=== PATIENT | female | born 1945 | race Caucasian/White ===

== ENCOUNTER 2017-11-06 18:50 | Emergency (ER) | payer MEDICARE, MEDICAID ==
[~2017-11-06] VITALS: Ht 167.6 cm; Wt 81.8 kg
[~2017-11-06 18:50] MED LIST: AMLO-512 PO; LISI-662 PO; METO25TA6 PO; PERCT10 PO
[2017-11-06] MEDS ORDERED: HYDR2 PO (19:09)
[2017-11-06] MEDS: HYDROmorphone 2 MG/ML SYRINGE IVP ONE ×2 (20:02→20:05)
[2017-11-06] MEDS ORDERED: HYDROmorphone 2 MG/ML SYRINGE IVP ONE (20:15)
[2017-11-06] MEDS ORDERED: ONDANSETRON HCL 4 MG/2 ML VIAL IVP ONE (20:15)
[2017-11-06 20:59] VITALS: BP 141/73
== END 2017-11-06 21:13 | disposition home or self-care (01) ==
LOC: EMS 18:58
DX: M25.572 Pain in left ankle and joints of left foot (principal); Z76.0 Encounter for issue of repeat prescription; I10 Essential (primary) hypertension; Z79.899 Other long term (current) drug therapy; Z98.890 Other specified postprocedural states
CPT/HCPCS: 96374; 96375; 99284; J1170; J2405

== ENCOUNTER 2018-11-20 14:33 | Emergency (ER) | payer MEDICARE, MEDICAID ==
[~2018-11-20] VITALS: Ht 167.6 cm; Wt 86.4 kg
[~2018-11-20 14:33] MED LIST changes: -AMLO-512 PO; +AMLO10TA7 PO; +HYDR2 PO
[2018-11-20] MEDS ORDERED: DICL2100G TP (14:55)
[2018-11-20] MEDS ORDERED: PANT40TA25 PO (14:55)
[2018-11-20] MEDS ORDERED: ZOLP5 PO (14:55)
[2018-11-20] MEDS ORDERED: 0.9% SODIUM CHLORIDE 10 ML SYRINGE IVP PRN (15:45)
[2018-11-20 16:37] LABS: BASOPHILS % (AUTO) 0.3 % (0.0-2.0); EOSINOPHILS % (AUTO) 1.5 % (1.0-6.0); HEMATOCRIT 36.7 % (36-46); HEMOGLOBIN 12.2 g/dL (12.0-16.0); LYMPHOCYTES % (AUTO) 21.5 % (22.0-44.0); MEAN CORPUSCULAR HEMOGLOBIN 31.2 pg (26.0-34.0); MEAN CORPUSCULAR HGB CONC 33.3 G/dL (31.0-37.0); MEAN CORPUSCULAR VOLUME 94 fL (80-100); MONOCYTES # (AUTO) 0.4 K/uL (0.1-1.0); MONOCYTES % (AUTO) 9.8 % (2.0-9.0); NEUTROPHILS % (AUTO) 66.9 % (40.0-70.0); PLATELET COUNT (AUTO) 374 K/uL (150-450); RED BLOOD CELL COUNT(AUTO) 3.91 MIL/uL (4.00-5.20); RED CELL DISTRIBUTION WIDTH 12.7 % (11.5-14.5)
[2018-11-20 16:57] LABS: CALCIUM, TOTAL 9.3 mg/dL (8.8-10.5); CREATININE 1.19 mg/dL (0.60-1.30); POTASSIUM 4.5 mmol/L (3.5-5.1)
[2018-11-20 17:01] LABS: ALBUMIN 3.6 g/dL (3.4-5.0); BILIRUBIN,TOTAL 0.3 mg/dL (0.1-1.0); TOTAL PROTEIN, SERUM 9.7 g/dL (6.4-8.2)
[2018-11-20 17:05] LABS: LACTIC ACID 1.5 mmol/L (0.4-2.0)
[2018-11-20] MEDS ORDERED: PIPERACILLIN/TAZO 3.375 GM/D5W 50 ML IV ONE (18:45)
[2018-11-20] MEDS ORDERED: VANCOMYCIN HCL 1 GM/D5% WATER 200 ML IV ONE (18:45)
[2018-11-20] MEDS ORDERED: TraMADol HCL 50 MG TABLET PO ONE (20:45)
[2018-11-20 21:00] VITALS: BP 135/71
== END 2018-11-20 21:41 | disposition home or self-care (01) ==
LOC: EMS 14:36
DX: L03.115 Cellulitis of right lower limb (principal); I10 Essential (primary) hypertension; E11.9 Type 2 diabetes mellitus without complications; Z79.899 Other long term (current) drug therapy
CPT/HCPCS: 36415; 80053; 83605; 85025; 87040; 93005; 93971; 96365; 96366; 96368; 99285; J2543; J3370

== ENCOUNTER 2019-04-12 18:39 | Emergency (ER) | payer MEDICARE, MEDICAID ==
[~2019-04-12] VITALS: Ht 167.6 cm; Wt 81.8 kg
[~2019-04-12 18:39] MED LIST changes: +DICL2100G TP; +PANT40TA25 PO; -PERCT10 PO; +ZOLP5 PO
[2019-04-12] MEDS ORDERED: ACETAMINOPHEN 500 MG TABLET PO ONE (22:00)
[2019-04-12 22:07] LABS: BASOPHILS % (AUTO) 0.4 % (0.0-2.0); HEMATOCRIT 33.3 % (36-46); HEMOGLOBIN 11.1 g/dL (12.0-16.0); LYMPHOCYTES # (AUTO) 1.2 K/uL (1.0-4.8); LYMPHOCYTES % (AUTO) 25.8 % (22.0-44.0); MEAN CORPUSCULAR HEMOGLOBIN 30.4 pg (26.0-34.0); MEAN CORPUSCULAR HGB CONC 33.4 G/dL (31.0-37.0); MEAN CORPUSCULAR VOLUME 91 fL (80-100); MONOCYTES # (AUTO) 0.6 K/uL (0.1-1.0); MONOCYTES % (AUTO) 13.5 % (2.0-9.0); NEUTROPHILS # (AUTO) 2.7 K/uL (1.8-7.7); NEUTROPHILS % (AUTO) 59.3 % (40.0-70.0); PLATELET COUNT (AUTO) 273 K/uL (150-450); RED BLOOD CELL COUNT(AUTO) 3.65 MIL/uL (4.00-5.20); RED CELL DISTRIBUTION WIDTH 13.3 % (11.5-14.5)
[2019-04-12 22:28] LABS: CALCIUM, TOTAL 8.6 mg/dL (8.8-10.5); CREATININE 1.03 mg/dL (0.60-1.30); POTASSIUM 4.3 mmol/L (3.5-5.1)
[2019-04-12 22:37] LABS: ALBUMIN 3.6 g/dL (3.4-5.0); BILIRUBIN,TOTAL 0.4 mg/dL (0.1-1.0)
[2019-04-12 22:55] VITALS: BP 142/76
[2019-04-12] MEDS ORDERED: DOXYCYCLINE HYCLATE 100 MG CAPSULE PO ONE (23:15)
== END 2019-04-12 23:47 | disposition home or self-care (01) ==
LOC: EMS 18:45
DX: L03.115 Cellulitis of right lower limb (principal); E11.9 Type 2 diabetes mellitus without complications; I10 Essential (primary) hypertension; Z90.89 Acquired absence of other organs; Z79.899 Other long term (current) drug therapy
CPT/HCPCS: 85379; 93971

== ENCOUNTER 2019-04-30 17:33 | Inpatient (IN) | payer MEDICARE, MEDICAID ==
[~2019-04-30] VITALS: Ht 167.6 cm; Wt 86.2 kg
[2019-04-30] MEDS ORDERED: PIPERACILLIN/TAZO 3.375 GM/D5W 50 ML IV ONE (19:30)
[2019-04-30] MEDS ORDERED: VANCOMYCIN HCL 1 GM/D5% WATER 200 ML IV ONE (19:30)
[2019-04-30 19:53] LABS: APPEARANCE,URINE CLEAR (CLEAR); BILIRUBIN,URINE NEGATIVE (NEGATIVE); GLUCOSE, URINE (UA) NEGATIVE (NEGATIVE); KETONES,URINE NEGATIVE (NEGATIVE); LEUKOCYTE ESTERASE ,URINE NEGATIVE (NEGATIVE); NITRATE,URINE NEGATIVE (NEGATIVE); OCCULT BLOOD,URINE NEGATIVE (NEGATIVE); PROTEIN,URINE TRACE (NEGATIVE); UROBILINOGEN,URINE 0.2 mg/dL (<=1.0)
[2019-04-30 19:57] LABS: BASOPHILS % (AUTO) 0.8 % (0.0-2.0); EOSINOPHILS % (AUTO) 0.7 % (1.0-6.0); HEMOGLOBIN 11.1 g/dL (12.0-16.0); LYMPHOCYTES # (AUTO) 1.2 K/uL (1.0-4.8); LYMPHOCYTES % (AUTO) 18.5 % (22.0-44.0); MEAN CORPUSCULAR HEMOGLOBIN 30.4 pg (26.0-34.0); MEAN CORPUSCULAR HGB CONC 33.6 G/dL (31.0-37.0); MEAN CORPUSCULAR VOLUME 91 fL (80-100); MONOCYTES # (AUTO) 0.7 K/uL (0.1-1.0); MONOCYTES % (AUTO) 10.8 % (2.0-9.0); NEUTROPHILS # (AUTO) 4.4 K/uL (1.8-7.7); NEUTROPHILS % (AUTO) 69.2 % (40.0-70.0); PLATELET COUNT (AUTO) 340 K/uL (150-450); RED BLOOD CELL COUNT(AUTO) 3.64 MIL/uL (4.00-5.20); RED CELL DISTRIBUTION WIDTH 13.8 % (11.5-14.5)
[2019-04-30 20:18] LABS: INR 1.1 (0.9-1.1); PROTHROMBIN TIME 10.7 SEC (9.4-11.6)
[2019-04-30 20:28] LABS: BACTERIA,URINE None Seen /HPF (None Seen); RBC,URINE None Seen /HPF (0-2); SQUAMOUS EPITHELIAL CELL,UR Few /LPF (None Seen); WBC,URINE None Seen /HPF (0-5)
[2019-04-30] MEDS ORDERED: ONDANSETRON HCL 4 MG/2 ML VIAL IVP ONE (20:45)
[2019-04-30] MEDS ORDERED: ACETAMINOPHEN 325 MG TABLET PO PRN ×2 (21:00→21:15)
[2019-04-30] MEDS ORDERED: OxyCODONE HCL/ACETAMINOPHEN 5-325 MG TABLET PO PRN (21:00)
[2019-04-30] MEDS ORDERED: MAGNESIUM HYDROXIDE SUSPENSION 30 ML UDCUP PO PRN (21:00)
[2019-04-30] MEDS ORDERED: 0.9% SODIUM CHLORIDE 10 ML SYRINGE IVP PRN (21:15)
[2019-04-30] MEDS ORDERED: ONDANSETRON HCL 4 MG/2 ML VIAL IVP PRN (21:15)
[2019-04-30 21:43] LABS: CREATININE 1.19 mg/dL (0.60-1.30); POTASSIUM 4.8 mmol/L (3.5-5.1)
[2019-04-30 21:48] LABS: ALBUMIN 3.7 g/dL (3.4-5.0); BILIRUBIN,TOTAL 0.7 mg/dL (0.1-1.0); TOTAL PROTEIN, SERUM 9.7 g/dL (6.4-8.2)
[2019-04-30] MEDS: METOPROLOL TARTRATE 25 MG TABLET PO SCH (22:39)
[2019-04-30] MEDS: DOCUSATE SODIUM 100 MG CAPSULE PO SCH (22:39)
[2019-04-30 23:58] VITALS: BP 145/63
[2019-05-01] MEDS: HEPARIN SODIUM,PORCINE 5,000 UNITS/ML VIAL SQ SCH ×4 (00:39→23:16)
[2019-05-01] MEDS ORDERED: SODIUM CHLORIDE 0.9% 250 ML IV ONE ×2 (00:47→17:05)
[2019-05-01] MEDS: PIPERACILLIN/TAZO 3.375 GM/D5W 50 ML IV SCH ×4 (05:22→23:15)
[2019-05-01 05:45] VITALS: BP 155/63
[2019-05-01] MEDS: VANCOMYCIN HCL 1.5 GM in DEXTROSE 5%-WATER 250 ML IV SCH (07:06)
[2019-05-01 07:46] VITALS: BP 144/70
[2019-05-01] MEDS: HYDROCODONE/ACETAMINOPHEN 5-325 MG TABLET PO PRN ×2 (09:20→17:10)
[2019-05-01] MEDS: AmLODIPine BESYLATE 10 MG TABLET PO SCH (09:21)
[2019-05-01] MEDS: FAMOTIDINE 20 MG TABLET PO SCH (09:21)
[2019-05-01] MEDS: ASPIRIN 81 MG CHEWABLE TABLET PO SCH (09:21)
[2019-05-01] MEDS: DOCUSATE SODIUM 100 MG CAPSULE PO SCH ×2 (09:21→20:54)
[2019-05-01] MEDS: METOPROLOL TARTRATE 25 MG TABLET PO SCH ×2 (09:38→20:54)
[2019-05-01 11:33] VITALS: BP 141/65
[2019-05-01 15:26] VITALS: BP 136/66
[2019-05-01 19:40] VITALS: BP 141/68
[2019-05-01] MEDS ORDERED: ESCI20TA PO (21:00)
[2019-05-01] MEDS ORDERED: TRAZ-257 PO (21:00)
[2019-05-01] MEDS ORDERED: SODIUM CHLORIDE 0.9% 500 ML IV ONE (21:58)
[2019-05-01] MEDS ORDERED: TraZODone HCL 100 MG TABLET PO SCH (23:30)
[2019-05-01 23:53] VITALS: BP 154/77
[2019-05-02] MEDS: HYDROCODONE/ACETAMINOPHEN 5-325 MG TABLET PO PRN ×2 (03:29→11:02)
[2019-05-02 03:48] VITALS: BP 158/67
[2019-05-02] MEDS: PIPERACILLIN/TAZO 3.375 GM/D5W 50 ML IV SCH ×2 (04:29→10:42)
[2019-05-02] MEDS: VANCOMYCIN HCL 1.5 GM in DEXTROSE 5%-WATER 250 ML IV SCH (06:03)
[2019-05-02 07:26] VITALS: BP 148/84
[2019-05-02] MEDS: HEPARIN SODIUM,PORCINE 5,000 UNITS/ML VIAL SQ SCH (08:23)
[2019-05-02] MEDS: DOCUSATE SODIUM 100 MG CAPSULE PO SCH (08:24)
[2019-05-02] MEDS: METOPROLOL TARTRATE 25 MG TABLET PO SCH (08:24)
[2019-05-02] MEDS: FAMOTIDINE 20 MG TABLET PO SCH (08:24)
[2019-05-02] MEDS: AmLODIPine BESYLATE 10 MG TABLET PO SCH (08:24)
[2019-05-02] MEDS: ASPIRIN 81 MG CHEWABLE TABLET PO SCH (08:24)
[2019-05-02] MEDS ORDERED: ESCITALOPRAM OXALATE 20 MG TABLET PO SCH (09:00)
[2019-05-02 09:46] LABS: CALCIUM, TOTAL 8.4 mg/dL (8.8-10.5); CREATININE 1.14 mg/dL (0.60-1.30); POTASSIUM 4.3 mmol/L (3.5-5.1)
[2019-05-02] MEDS ORDERED: BACTDSB PO (13:26)
== END 2019-05-02 18:15 | disposition home or self-care (01) | DRG 603 ==
LOC: EMS 17:36 → 6N 21:00 → 4E 05-02 03:45
PROVIDERS: ADMIT Internal Medicine; ATTEND Internal Medicine
DX: L03.115 Cellulitis of right lower limb (principal); I10 Essential (primary) hypertension; E66.9 Obesity, unspecified; Z96.649 Presence of unspecified artificial hip joint; Z68.30 Body mass index [BMI] 30.0-30.9, adult; Z90.49 Acquired absence of other specified parts of digestive tract; Z98.890 Other specified postprocedural states
CPT/HCPCS: 83605; 85379; 85651; 86140; 87040; 93005; 93306; 93925; 93970; J1644; J2405; J2543; J3370; J7040; J7050; J7060